=== PATIENT | male | born 1940 | race Caucasian/White ===

== ENCOUNTER 2019-04-24 15:58 | Emergency (ER) | payer MEDICARE, OTHER ==
[~2019-04-24] VITALS: Ht 170.2 cm; Wt 86.0 kg
[2019-04-24 16:05] VITALS: BP 158/87
== END 2019-04-24 16:30 ==
LOC: ED 15:58
DX: S98.3 Traumatic amputation of midfoot (principal); W30.1XXA Contact with power take-off devices (PTO), initial encounter; Y92.009 Unspecified place in unspecified non-institutional (private) residence as the place of occurrence of the external cause; E11.9 Type 2 diabetes mellitus without complications; I10 Essential (primary) hypertension; Z23 Encounter for immunization